=== PATIENT | male | born 2000 | race Asian ===

== ENCOUNTER 2022-06-08 21:02 | Emergency (ER) | payer MEDICAID ==
[~2022-06-08] VITALS: Ht 177.8 cm; Wt 55.9 kg
[2022-06-08 23:30] VITALS: BP 117/62
== END 2022-06-09 00:09 | disposition home or self-care (01) ==
LOC: EMS 21:03
DX: S16.1XXA Strain of muscle, fascia and tendon at neck level, initial encounter (principal); S39.012A Strain of muscle, fascia and tendon of lower back, initial encounter; S09.90XA Unspecified injury of head, initial encounter; F12.90 Cannabis use, unspecified, uncomplicated; V89.2XXA Person injured in unspecified motor-vehicle accident, traffic, initial encounter; Y93.89 Activity, other specified; Y92.89 Other specified places as the place of occurrence of the external cause; Y99.8 Other external cause status; Z90.89 Acquired absence of other organs
CPT/HCPCS: 70450; 72100; 72125; 99284